=== PATIENT | female | born 1965 | race Caucasian/White ===

== ENCOUNTER → 2017-10-14 13:21 | Outpatient (POV) | payer OTHER, SELFPAY | PROVIDERS: Family Provider Family Medicine; PCP Nurse Practitioner; Visit Provider Nurse Practitioner Acute Care | DX: Z00.00 Encounter for general adult medical examination without abnormal findings (principal) ==

== ENCOUNTER → 2019-02-12 14:15 | Outpatient (CLI) | payer OTHER, SELFPAY ==
[2019-02-12 15:13] LABS: Erythrocyte Sedimentation Rate 13 mm/hr (0-30)
[2019-02-12 15:36] LABS: Alanine Aminotransferase 30 U/L (12-78); Albumin/Globulin Ratio 1.2 (1.1-1.8); Alkaline Phosphatase 91 U/L (46-116); Amylase 70 U/L (25-115); Aspartate Amino Transferase 17 U/L (15-37); Bilirubin,Total 1.1 mg/dL (0.2-1.0); Blood Urea Nitrogen 10 mg/dL (7-18); Calcium 9.4 mg/dL (8.5-10.1); Carbon Dioxide 27 mmol/L (21.0-32.0); Chloride 103 mmol/L (98-107); Creatinine,Serum 0.67 mg/dL (0.55-1.02); Estimated Glomerular Filt Rate 91 ml/min (>60); GFR (African American) 110 ML/MIN (>60); Globulin 3.4 gm/dl (1.3-3.2); Glucose 107 mg/dL (74-106); Lipase 78 u/L (73-393); Sodium 141 mmol/L (136-145); Total Protein,Serum 7.4 gm/dL (6.4-8.2)
== END ==
PROVIDERS: Visit Provider Nurse Practitioner Family
DX: R10.84 Generalized abdominal pain (principal); R11.2 Nausea with vomiting, unspecified
CPT/HCPCS: 36415; 80053; 82150; 83690; 85651

== ENCOUNTER → 2019-08-07 10:33 | Outpatient (CLI) | payer OTHER, SELFPAY ==
--- NOTE | 2019-08-07 10:46 | XR_ITS ---
PROCEDURE: XR LUMBAR SPINE MIN 4V CLINICAL INDICATION: CHRONIC LUMBAGO WITH SCIATICA COMPARISON: LS5 LUMBAR SPINE 5 VIEWS from 05/11/2015 FINDINGS: Mild lumbar scoliosis convex left. There is degenerative disc disease from L2-S1. This has progressed compared to the previous study. No acute fracture or dislocation. No lytic or blastic change. There are facet arthritic changes at L4-5 and L5-S1 IMPRESSION: Progression of degenerative disc disease and facet arthritic change Dictated by: Estuardo Andrade MD 08/07/2019 18:09 Electronically signed by Estuardo Andrade MD in [place] 08/07/2019 18:09
== END ==
PROVIDERS: PCP Nurse Practitioner Family; Visit Provider Nurse Practitioner Family
DX: M54.41 Lumbago with sciatica, right side (principal); G89.29 Other chronic pain
CPT/HCPCS: 72110

== ENCOUNTER → 2020-06-06 10:07 | Outpatient (CLI) | payer OTHER, SELFPAY ==
[2020-06-06 10:41] LABS: Adenovirus,PCR Not Detected (NotDetected); Bordetella Pertussis Not Detected (NotDetected); Chlamydophila Pneumoniae, PCR Not Detected (NotDetected); Coronavirus 19, PCR Not Detected (NotDetected); Coronavirus 229E Not Detected (NotDetected); Coronavirus NL63 Not Detected (NotDetected); Coronavirus OC43 Not Detected (NotDetected); Coronovirus HKU1,PCR Not Detected (NotDetected); Human Metapneumovirus Not Detected (NotDetected); Influenza A, PCR Not Detected (NotDetected); Influenza AH1, 2009 Not Detected (NotDetected); Influenza AH1, PCR Not Detected (NotDetected); Influenza AH3,PCR Not Detected (NotDetected); Influenza B, PCR Not Detected (NotDetected); Mycoplasma Pneumoniae, PCR Not Detected (NotDetected); Parainfluenza 1, PCR Not Detected (NotDetected); Parainfluenza 2, PCR Not Detected (NotDetected); Parainfluenza 3, PCR Not Detected (NotDetected); Parainfluenza 4, PCR Not Detected (NotDetected); Respiratory Syncytial Virus Not Detected (NotDetected); Rhinovirus/Enterovirus Not Detected (NotDetected)
== END ==
PROVIDERS: PCP Family Medicine; Visit Provider Family Medicine
DX: Z03.818 Encounter for observation for suspected exposure to other biological agents ruled out (principal)
CPT/HCPCS: 87581; 87633; 87798; U0003

== ENCOUNTER → 2020-08-22 15:09 | Outpatient (CLI) | payer OTHER, SELFPAY | PROVIDERS: PCP Family Medicine; Visit Provider Nurse Practitioner | DX: Z11.52 Encounter for screening for COVID-19 (principal) | CPT/HCPCS: U0003 ==

== ENCOUNTER 2021-08-10 09:42 | Outpatient (CLI) | payer OTHER, SELFPAY ==
[2021-08-10] VITALS (7 sets, daily range): BP systolic 115–130; BP diastolic 65–73; PULSE 54–60; RESP 16–18; TEMP 36.6–36.7; O2SAT 98–100
== END 2021-08-10 12:36 | disposition home or self-care (01) ==
PROVIDERS: PCP Family Medicine; Visit Provider Family Medicine
DX: U07.1 COVID-19 (principal); Z23 Encounter for immunization
CPT/HCPCS: 96365

== ENCOUNTER 2025-03-17 12:12 | Outpatient (CLI) | payer BC, SELFPAY ==
--- OUTSIDE RECORDS SUMMARY | 2025-03-17 12:16 | XMS_ITS | Encounter Summary ---
Author Organization [facility] Address [address] [place] [address] Care Team Providers Care Winding Machine Operator Name Role Phone Rudy Tena MD Primary Care Provider [phone] Reason for Visit * Reason Onset Date Comments Appointment 08/23/2022 Encounter Details Date Type Department Care Team (Late st Contact Info) Description 08/23/[address] [facility] [address] [phone] Julieth Amato MD [address] [place] [address] Appointment Social History Tobacco Use Types Packs/Day Years Used Date Smoking Tobacco: Never Smokeless Tobacco: Never Alcohol Use Standard Drinks/Week Comments Yes 0 (1 standard drink = 0.6 oz pur e alcohol) socially PHQ-2 Answer Date Recorded Retired Total Score 0 01/25/2021 Comments No Sex and Gender Information Value Date Recorded Sex Assigned at Not on file Legal Sex Female 10:36 AM EDT Gender Identity Not on file Sexual Orientation Not on file documented as of this encounter Miscellaneous Notes * Telephone Encounter - Jazzy Sanches - 08/23/2022 2:38 PM EST Spoke with patient and she is scheduled for 09/06/[address] Amato at 1:00pm. * Telephone Encounter - America Dodd RegSched Rep - 08/23/2022 1:04 PM EST Caller: Joce Hawa Kasperu Relationship: Self Best call back number: [phone] Requested Prescriptions: Requested Prescriptions Pending Prescriptions Disp Refills ??? tamoxifen (NOLVADEX) 20 MG chemo tablet 30 tablet 1 Sig: Take 1 tablet by mouth Daily. PATIENT MUST CALL [phone] TO SCHEDULE A FOLLOW UP APPOINTMENT FOR FUTURE REFILLS. Pharmacy where request should be sent: [id number] - [place], [place] - [address] AT [facility] [address] [address] - [phone] - [phone] FX Additional details provided by patient: YOU CAN SEE PATIENT HAS HER MAMMOGRAM IN September & SHE WAS CALLING TO [facility]. FROM LAST YEAR, I WAS GOING TO [facility]. HER BUT I THOUGHT YOU ALL MIGHT WANTTO [facility]. HER FOR AFTER HER MAMMOGRAM BUT I CANNOT MAKE THAT DECISION SO TOLD PATIENT I WOULD CHECKWITH YOU ALL. HER BIGGEST FEAR IS THAT DR. AMATO WILL NOT REFILL HER TAMOXIFEN. Does the patient have less than a 3 day supply: [x] Yes [] No Would you like a call back once the refill request has been completed: [x] Yes [] No If the office needs to give you a call back, can they leave a voicemail: [x] Yes [] No Regi Ramirez Rep 08/23/22 13:04 EST documented in this encounter Plan of Treatment Not on file documented as of this encounter Visit Diagnoses Diagnosis Malignant neoplasm of right breast in female, estrogen receptor positive, unspecified site of breast documented in this encounter Care Teams Winding Machine Operator Relationship Specialty Start Date End Date Rudy Tena MD [address] [place] [id number] PCP - General Family Medicine 11/10/18 documented as of this encounter
--- OUTSIDE RECORDS SUMMARY | 2025-03-17 12:16 | XMS_ITS ---
Author Organization [facility] Address [address] [place] [address] Care Team Providers Care F[employer] And Wellness Instructor Name Role Phone Rudy Tena MD Primary Care Provider [phone] Active Problems Problem Noted Date Diagnosed Date Changes in vision 12/04/2023 Breast cancer, right 04/08/2019 Cancer Staging:Pathologic:Stage IA(pT1a, pN0, cM0, G2, ER: Positive, RI: Positive, HER2: Positive) - Signed by Julieth Amato MD on 04/08/2019 Current Treatment and Therapy Plans No current plan information found. Past Treatment and Therapy Plans No past plan information found. Treatment Summaries Breast cancer, right* Breast Cancer Survivorship Plan General Information Patient name Hawa Hobson Date of 1965 Phone Email No e-mail address on record Cancer Treatment Team Patient Care Team: Krystal Paulino MD as Referring Physician (General Surgery) Hanh Eduardo MD as Consulting Physician (Radiation Oncology) Julieth Amato MD as Consulting Physician (Hematology and Oncology) Provider Phone numbers Care Team Provider: Krystal Paulino MD, ([phone]) Care Team Provider: Hanh Eduardo MD, ([phone]) Care Team Provider: Julieth Amato MD, ([phone]) Post Treatment Care Team Primary Care Physician Rudy Tena MD [address] [place] [address] Background Information Medical history Past Medical History: Breast cancer, right (CMS/HCC) Surgical history No past surgical history on file. Tobacco use Social History Tobacco Use Smoking Status Never Smoker Smokeless Tobacco Never Used Family oncology history Cancer-related family history includes Breast cancer in her mother. There is no history of Ovarian cancer. Oncology Information Breast cancer, right (CMS/HCC) 01/22/2019 Biopsy Right breast 04/03/2019 Surgery Surgery Procedure: Lumpectomy Location: Right breast Completeness of resection: No evidence of residual tumor 04/08/2019 Initial Diagnosis Breast cancer, right (CMS/HCC) 05/06/2019 - 06/01/2019 Radiation Radiation OncologyTreatment Course: Hawa Hobson received 4005 cGy in 15 fractions to right breast via External Beam Radiation - EBRT. 06/03/2019 - Hormonal Therapy Hormonal medication: tamoxifen Complications during Therapy: No concerns stated Modification to Treatment Plan: No Modifications Lifetime Dose Tracking: No doses have been documented on this patient for the following tracked chemicals: Doxorubicin, Epirubicin, Idarubicin, Daunorubicin, Mitoxantrone, Bleomycin, Mitomycin, Doxorubicin Liposomal [No treatment plan] Persistent Treatment-Associated Adverse Effects at Completion of Therapy It is important to recognize that not every person experiences the following adverse events after treatment. You may not have any of these issues, a few or many adverse effects. Experiences are highly variable. Please discuss any adverse effects of cancer treatment with your cancer care team. After Surgical Therapy Breast Conserving Surgery (Lumpectomy) Breast conserving surgery (lumpectomy) involves the removal of the breast mass (cancer lump) and a surrounding area of normal tissue. After surgery, there may be pain and soreness in the chest, underarm or shoulder which should get better over time. Nerves may be damaged in the breast and areas of lymph node removal which may result in numbness and other changes in sensation. Ask your doctor or nurse if you have issues with pain, numbness or tingling, or any changes in function or mobility. Breast conserving surgery allows women to keep their breast but the breast may look different than it did before surgery. The breast may be smaller and may be different in size and shape. There will be a scar from the surgery and scar tissue may feel different. Radiation therapy can also affect theway the breast looks and feels. How you think and feel about your body is important and coping withchanges after breast surgery takes time. It's important to look at your scar, which should become less red and swollen over time. It's important to touch your scar, too. Your physician may give you instructions about massaging the scar to help with healing and to soften scar tissue. If you have a partner, let your partner look at and feel the scar when you're ready. Working through feelings aboutthe cancer and changes as a result of surgery may take time and support. Talk with your doctor or nurse about any issues with body image and coping. Survivors of breast cancer should speak with their health care provider regarding the possibility of a genetic or family syndrome. If there does appear to be a family history or possible genetic syndrome, genetic counseling and testing may be recommended. Mentcle Node Biopsy Removal of the sentinel lymph node is the removal of the first lymph node to which cancer cells aremost likely to spread. After surgery, there may be pain and soreness in the area where the node wasremoved. Nerves may be damaged which may result in numbness or other changes in sensation. While sentinel node biopsy (as opposed to a lymph node dissection where more lymph nodes are removed) decreases the risk of developing lymphedema, the risk is not completely gone. Lymphedema Removal of lymph nodes can slow the normal flow of lymph in the area which can lead to swelling in that limb, also called lymphedema. Survivors who also received radiation therapy to the area where alymph node was removed may be at increased risk of developing lymphedema. In some cases, the lymphedema can occur years after cancer therapy was completed. Lymphedema can cause pain or discomfort, disfigurement, change in function, and increased risk of infection in the affected area and closest limb. Signs of lymphedema can include a feeling of fullness or heaviness, changes in the skin (red, thick, stiff), aching, tightness, and difficulty moving or flexing nearby joints. Other signs could be that your jewelry or clothes, like socks, pants or sleeves, may begin to feel tight on the affectedlimb. As signs of lymphedema could develop months or years after treatment, continue to monitor forsigns and notify your doctor. Several steps can be taken to help prevent and control lymphedema. Survivors should protect the potentially affected limb by avoiding cuts, scrapes, carver, insect bites, shots/vaccines, blood draws, and IV sticks in order to decrease the risk of developing an infection in the limb. In addition, thesurvivor should protect the limb from the sun to avoid sunburn. Lastly, survivors should avoid tight clothing and jewelry, and blood pressures in the affected limb that might further slow the normal flow of lymph. Survivors of cancer, including those at risk for lymphedema, can and should exercise. Survivors should start slow and gradually increase intensity while monitoring your limb for changes in swelling or redness. If either occurs, stop exercising and notify your doctor for further direction. After Chemotherapy No chemotherapy received. After Radiation Therapy Radiation therapy can cause early and late side effects. Early side effects are those that happen during or shortly after treatment and are usually gone within a few weeks after treatment ends. Late side effects may take months or years to develop and vary depending on the areas of the body included in the field of radiation and the radiation techniques that were used. The most common early side effects are fatigue (feeling tired) and skin changes. Other early side effects are usually related to the area being treated. If you continue to have some skin problems after treatment ends, be gentle with the skin in the treatment area until all signs of irritation are gone and continue to care for your skin as your doctors and nurses have advised. If you continue to have fatigue, you may need to plan your activities to maximize energy, get extra rest while your bodyis still recovering and follow other instructions from your doctors and nurses such as exercise andactivity. retirement effects of radiation therapy vary greatly depending on the areas included in the field ofradiation and the radiation techniques that were used. Breast tissue exposed to radiation may become more firm over time and you may notice changes in the size and shape of the breast. The skin wherethe breast was treated may have a different coloration, be more red or appear tanned. If the lymph nodes under the arm (axillary nodes) were in the radiation field, there may be an increased risk of developing lymphedema. Lymphedema is a condition in which fluid collects in the arm or other areas such as the hand, fingers, chest or back and cause swelling. In rare cases, radiation therapy can increase the risk of a second cancer. Ask your doctors and nurses about the risk of rodent exterminator effects. Keep your follow up appointments and keep up with recommended health screenings Hormone Therapy Hormones, like estrogen and progesterone, are naturally produced in the body. Typically these hormones help our body function in various ways, however, in some cases these hormones can also cause cancer to grow. When your cancer is positive for hormone receptors, your doctor may recommend hormone therapy. Hormone therapy works by either blocking the effects of the hormone on the cancer cell, or by reducing the amount of hormone produced by the body. In doing so, the cancer cells no longer receive or use the hormone to grow. It is very important for you to take the medicine as prescribed by your doctor and keep your regular follow-up appointments. Some medications interfere with hormone therapy medications, so be sure and discuss all medications that you take with your doctor. Common side effects women experience from hormone therapy includes hot flashes, vaginal dryness, and lack of a period in women who have not yet reached menopause. Some less common but serious side effects of hormone therapy may include increased risk for blood clots, joint pain, bone loss, weakness, mood changes, nausea, fatigue, and loss of interest in sexual activity, endometrial and uterine cancers, risk for stroke, heart attack, angina , and heart failure. Share with your doctor the side effects you experience so a plan can be made to minimize the effects. In addition, these medications will be taken long-term, in some cases 5-10 years. When taking oral hormone therapy, it may be helpful to create a calendar, use a pillbox, or set an alarm on your watch or phone to remind you daily to take the medication. Care of your Venous Access Device No Venous Access Device currently in place General After Cancer Treatment It is not uncommon for cancer to impact other areas of your life such as relationships, work and mental health. If you develop financial concerns, resources are sometimes available to assist in theseareas. Depression and anxiety can present either during or after cancer diagnosis and treatment. Itis important to discuss with your physician any of these concerns so these resources can be made available to you. General Cancer Support & Resources [facility] [address], [address] [place] [address] Med Onc: Teaching Music Lessons Onc: Manager Of Digital: Kelle Khan - Psychiatric Nurse Practitioner: Celine Pike APRN - [phone] Kick It! (A free smoking cessation program) Financial Counselor and Contact Information: [facility] Financial Counseling - Test Manager Contact Information: Maura Tirado - [phone] Wound Ostomy & Continence Nurse: Local Cancer Support Group and Contact Information: Look Good Feel Better: A non-medical, brand-neutral public service program that teaches beauty techniques to people with cancer to help them manage the appearance-related side effects of cancer treatment. The program includes lessons on skin and nail care, cosmetics, wigs and turbans, accessories and styling, helping people with cancer to find some normalcy in a life. - See more at: http://lookgoodfeelbetter.org Journey Toward Empowerment - for Women with Cancer: ([facility]) The Tools and encouragement you need to live your life to the fullest. Free Dinner served @ 6:00pm followed by speaker from 6:30 - 7:30pm. The series runs from May, and meets monthly. Call Steffanie Chris RN, OCN @ to receive information and upcoming schedule. [facility] Cancer Buddies: This support group is open to anyone that has been diagnosed with cancer of any type. Meets at 6:30pm on the last Saturday of each month. Location: [facility]; [address] [place] [address]. For more information call Tatiana Desir @ . Breast Cancer Support & Resources Local Cancer Support Groups and Contact Information: [place] ([place]): Breast Cancer Support group. Meets the Saturday of each month at various locations. Please Call Dominic Guerrero for meeting information @ [phone] or Gabriella Ye @ [phone]. The Journey: Breast Cancer Support Ministry: Meets the Saturday of each month, 5:00PM @ O?[place], [place]. Please call Halley Polanco at [phone] for additional information. Reach To Recovery: An [employer] peer support group for women with a concern about breast cancer. Patentscan talk with volunteer breast cancer survivors, in person or over the phone, for support & encouragement. Also, after you have completed your journey and would like to give back, you can call the 8-112 number to volunteer as a survivor and support to others. For additional information, please call [phone] or go to sss.cancer.org. Surveillance How Frequent? Medical Oncology visits 1 - 4 times per year as clinically appropriate for 5 years, then annually Lab tests Imaging exams Mammography Every 12 months Lymphedema Monitor for lymphedema Genetic Counseling Periodic screening for changes in family history and referral to genetic counseling as indicated Gynecologic assessment For women on tamoxifen, gynecologic assessment every 12 months if uterus is present. Bone Density study For women on aromatase inhibitor or who experience ovarian failure secondary to treatment should have monitoring of bone health and bone mineral density determination at baseline and periodically thereafter Immunizations Influenza Herpes Zoster Pneumococcal Yearly Once As appropriate Tobacco Cessation The patient is not currently a tobacco user. Counseling given: Not Answered Monitor for ongoing toxicities: None Specified Call your doctor if you have any of these signs or symptoms New or worsening symptoms. Pain that is new, unrelieved or bothersome. Difficulty with your emotions, anxiety, and/or depression. Physical problems that affect your abilities in your daily life or those that are bothersome (for example, continued fatigue, trouble sleeping, sexual problems, or edema). Referrals provided There are no referral needs at this time. Self Care Plan Self Care Plan: What You Can Do to Stay Healthy after Treatment for Cancer Cancer treatments may increase your chance of developing other health problems years after you havecompleted treatment. The purpose of this self care plan is to inform you about what steps you can take to maintain good health after cancer treatment. Keep in mind that every person treated for cancer is different and that these recommendations are not intended to be a substitute for the advice of a doctor or other health day care provider. Please use these recommendations to talk with your health care provider about an appropriate follow up care plan for you. Surveillance for Your Cancer Recommendation Frequency Comments Cancer surveillance visit with medical provider that is focused on detecting signs of recurrence ofyour cancer. For additional information, visit www.livestrong.org or www.cancer.net/patient/Survivorship Frequency depends on type and stage of cancer you had. (If you had a higher risk cancer, you may be seen more often). Your doctor has provided you with a personalized cancer treatment summary and survivorship care plan. If you need another copy, ask your doctor. General Cancer Screening for Women Cancer screening tests are designed to find cancer or pre-cancerous areas before there are any symptoms and, generally, when treatments are most successful. Various organizations have developed guidelines for cancer screening for women. While these guidelines vary slightly between different organizations, they cover the same basic screening tests for breast, cervical and colorectal cancers. In addition, during routine health examinations (at any age) your health care provider may also evaluate for cancers of the skin, mouth and thyroid. Not all screening tests are right for everyone. Your personal and family cancer history, and/or the presence of a known genetic predisposition, can affect which tests are right for you, and at what age you begin them. Therefore, you should discuss these with your health care provider. Your care plan will also include a section on follow up care foryour type of cancer, and these recommendations override the general screening recommendations for that particular type of cancer in the general population. The [employer] Cancer Society (ACS) recommends these screening guidelines for women: Recommendation Frequency Comments Breast Cancer Screening For more information, see the ACS document Breast Cancer: Early Detection. www.cancer.org/ssLINK/hpismv-vnvuyd-evvnk-detection-alicia Yearly mammograms starting at age 40, and continuing for as long as a woman is in good health. Clinical breast exam (CBE), performed by a health day care provider, every three years for women intheir 20s and 30s, and every year for women 40 and over. A monthly breast self-exam (BSE) is a good way to monitor breast health. Women should know how their breasts normally look and feel, and report any change promptly to their health care provider. The ACS recommends that some women - because of their family history, a genetic tendency, or certain other factors - be screened with Magnetic Resonance Imaging (MRI) in addition to mammograms. The numberof women who fall into this category is small (less than 2 percent of all [place] women). Talk with your doctor about your personal history and whether you should have additional tests at an earlier age. Colon and Rectal Cancer Screening For more information see the ACS document Colorectal Cancer: Early Detection. www.cancer.org/ssLINK/mjkhjyiqvt-ghpyew-lfvjo-detection-alicia Options for colon cancer screening can be divided into those that screen for both cancer and polyps, and those that just screen for cancer.Screening should begin at age 45 (unless you are considered high risk (see comments), using one of the following testing schedules: Tests that find polyps and cancer (Preferred over those that find cancer alone. If any of these tests are positive, a colonoscopy should be done.) Flexible sigmoidoscopy every five years, or Colonoscopy every 10 years, or Double-contrast barium enema every five years, or CT colonography (virtual colonoscopy) every five years Tests that primarily test for cancer Yearly fecal occult blood test (FOBT)*, or Yearly fecal immunochemical test (FIT) *, or Stool DNA test (sDNA), interval uncertain* * The multiple stool take-home test should be used. One test done by the doctor in the office is not adequate. A colonoscopy should be done if the test is positive. Talk with your doctor about your medical history, and what colorectal cancer screening test and schedule is best for you. Individuals at higher risk of colon cancer should have screening earlier and potentially more frequently. Those at higher risk of colon and rectal cancer: Individuals with a family history of colon or rectal cancer in a relative who was diagnosed before the age of 60 Individuals with a history of polyps Individuals with inflammatory bowel disease (Crohn's disease or ulcerative colitis) Individuals with a genetic predisposition to colon or rectal cancer, such as hereditary non-polyposis colon cancer (HNPCC) syndrome or familial adenomatous polyposis (FAP) syndrome Cervical Cancer Screening For more information see the ACS document Cervical Cancer: Early Detection. www.cancer.org/.../ojcbifzp-rjuldu-lhsqnmnjma-waq-guzul-xvhtytewr-alicia Cervical cancer screening should not begin before age 21. Screening Pap tests should be performed every three years between age 21 and 29 Women age 30 or older should be screened every 3 years with a Pap test or every five years with a combined Pap/Human Papillomavirus (HPV) test. Women 65 years of age or older who have had negative consecutive screening in the preceding 10 years should discontinue screening. Women who have had a total hysterectomy (removal of the uterus and cervix) should also stop having Pap tests, unless the surgery was done as a treatment for cervical cancer or pre-cancer. Women who have had a hysterectomy without removal of the cervix should continue to have Pap tests. Women who have had a history of a serious cervical precancer should continue screening for at least20 years, even if that extends screening past age 65. Women who have been vaccinated against HPV should still follow these screening guidelines. Treatment for most gynecological cancers involves hysterectomy and alters recommendations for Pap tests. Refer to your personalized cancer treatment summary and survivorship care plan to see what the Pap test recommendations are for you. If you need another copy of your care plan, please ask your doctor. Sun Exposure and Skin Cancer Risk Skin cancer is the most commonly diagnosed type of cancer, and rates are on the rise. However, thisis one cancer that in most cases can be prevented or detected early. While you may hear that you need the sun to make vitamin D, in reality you only need a few minutes a day to do this. Exposure to ultraviolet (UV) rays, either by natural sunlight or tanning beds, can lead to skin cancer. In additio n, UV rays lead to other forms of skin damage, including wrinkles, loss of skin elasticity, dark patches (sometimes called age spots or liver spots), and pre- cancerous skin changes (such as dry, scaly, rough patches). Although dark- skinned people are less likely to develop skin cancer, they can anddo develop skin cancers, most often in areas that are not exposed to sun (on the soles of the feet,under nails, and genitals). You can do a lot to protect yourself from damaging UV rays and to detect skin cancer early. Start by practicing sun safety, including using a broad spectrum sunscreen (which protects against UVA and UVB rays) with an SPF of at least 30 every day, avoiding peak sun times (10 a.m. to 4 p.m., when therays are strongest) and wearing protective clothing such as hats, sunglasses and long- sleeved shirts. Examine your skin regularly so you become familiar with any moles or birthmarks. If a mole has changed in any way, you should have a health care provider examine the area. This includes a change in size, shape or color; the development of scaliness, bleeding, oozing, itchiness or pain; or the development of a sore that will not heal. If you have a lot of moles, it may be helpful to make note of moles using photographs or a mole map . For a guide to performing a skin exam, visit www.skincarephysicians.com/skincancernet/skin_examinations.html. Healthy Lifestyle For some cancer survivors, the experience is the motivation to making healthy lifestyle changes. Itmay seem insignificant, but these changes have been shown to reduce the risk of the cancer coming back or a new cancer developing. Below are some tips on adopting a healthier lifestyle. Maintaining ahealthy weight is important in cancer prevention, as is physical activity and eating a healthy diet. Strive to incorporate all three pieces of the puzzle: healthy weight, balanced diet and regular exercise. Recommendation Goal Comments Maintain a healthy weight. For more information, visit http://www.nhlbi.nih.gov/health/public/heart/obesity/lose_wt/index.htm www.win.niddk.nih.gov Call the [employer] Association Talk to your health care team about what a healthy weight is for you, and take stepsto reach and maintain that weight. For many people reaching their ideal weight can be a challenge; however, losing even 5 to 10 poundscan lower blood pressure, blood sugar and cholesterol levels. Weigh yourself weekly to monitor for weight gain/loss Being overweight can increase your chance of your cancer coming back. Maintaining a healthy weight, physical activity and eating a healthy diet are all important in cancer prevention. Being overweight can increase your chance of having high blood pressure, high blood sugar and/or high cholesterol, which can lead to heart disease, diabetes and stroke. If you would like more information about your blood sugar, cholesterol or blood pressure, talk with your primary care provider. Eat a healthy diet, mostly from plant sources. For more information, visit http://www.choosemyplate.gov/food-groups/ Eat healthy, including plenty of fruits and vegetables daily. Drink more water, less soda and juice. Limit how much alcohol you drink (if you drink at all). Strive to have two- thirds of your plate be vegetables, fruits, whole grains and beans, while one- third or less should be an animal product. Choose fish and chicken and limit red meat and processed meats. Limit intake of alcohol to two drinks per day. Exercise. To learn more about recommendations for diet, activity and weight, visit AICR?s Guidelines for Survivors http://preventcancer.aicr.org/site/PageServer?pagename=patients_survivors_guidel chely ACS Eat Healthy and Get Active www.cancer.org/Healthy/EatHealthyGetActive/index Experts recommend at least 30 minutes of pzktdazo-uh-pnciffog activity per day, five days a week. Research shows that exercise can help you control your weight, improve your energy level, and help you sleep at night. The meehan is to find a physical activity you enjoy such as walking, dancing or gardening and do it regularly. If you have been inactivefor a while, start out slowly. You can start out by exercising 10 minutes a day several days a week. If you feel dizzy, short of breath, or have chest pain during exercise, stop exercising and talk with your primary care doctor. Do not use tobacco in any form. For more information, visit http://www.cdc.gov/tobacco/campaign/tips/ If you use tobacco, quit as soon as possible. Smoking is the most preventable cause of in the [place] If you would like more information, ask your doctor or you can call a national hotline at 8(322)-QUIT-NOW. Keep your bones healthy. For more information, visit www.niams.nih.gov/Health.../Bone/Bone_Health/bone_health_for_life For the FRAX (Fracture Risk Assessment) tool, visit: www.shef.ac.uk/FRAX/ , to estimate 10-year risks for fractures Ask your primary care provider aboutscreening for osteoporosis beginning at age 65 or at a younger age if your bone fracture risk is increased. The 10-year risk for osteoporotic fractures can be calculated for individuals by using the FRAX tool and could help to guide screening decisions for women younger than 65 years. Maximize your bone health by eating healthy, getting enough calcium and vitamin D, and exercising regularly. Certain cancer treatments, such as chemotherapy or hormonal therapy, can cause bone loss. In addition, after menopause, women can lose up to 20 percent of their bone density. The good news is that women can maximize their bone density by eating healthy, getting enough calcium and vitamin D, and exercising regularly. Age (years) Calcium per day Vitamin D per day 19 to 49 1000 milligrams 600 units 50 or over 1200 milligrams 800 units Have regular check-ups by a healthcare professional. For more information about healthy screening tests for men visit the U.S. Department of Health and Human Services. http://www.womenshealth.gov/txxgiuygw-fdyga-vai-vaccines/scqujhuxd-emnag-ygn-men / For more information about adult vaccinations visit the CDC: http://www.cdc.gov/vaccines/recs/schedules/adult-schedule.htm Keep up-to-date on general health screening tests, including cholesterol, blood pressure and glucose (blood sugar) levels. Get an annual influenza vaccine (flu shot). Get vaccinated with the pneumococcal vaccine, which prevents a type of pneumonia, and re-vaccinatedas determined by your health care team. Don?t forget dental and eye health! The [employer] recommends adults have their eyes examined every two years until age 60, then annually. People who wear glasses or corrective lenses or are at high risk for eye problems (i.e., diabetics, family history of eye disease) should be seen more frequently. The [employer] recommends adults see their dentist at least once a year. 3 No information on file. No information on file.
--- OUTSIDE RECORDS SUMMARY | 2025-03-17 12:16 | XMS_ITS | Clinical Summary ---
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 Active cyclobenzaprine (FLEXERIL) 10 MG tablet Take 1 tablet by mouth every night at bedtime. 05/06/2020 Active venlafaxine XR (Effexor XR) 150 MG 24 hr capsuleIndicatio ns:Malignant neoplasm of right breast in female, estrogen receptor positive, unspecified site of breast Take 1 capsule by mouth Daily. 30 capsule 11 01/10/2021 Active escitalopram (LEXAPRO) 5 MG tablet Take 1 tablet by mouth every night at bedtime. 07/04/2021 Active meclizine (ANTIVERT) 25 MG tablet Take 1 tablet by mouth 3 (Three) Times a Day As Needed for Dizziness. 15 tablet 12/06/2023 Active atorvastatin (LIPITOR) 80 MG tablet Take 1 tablet by mouth Every Night. 90 tablet 12/06/2023 Active aspirin 81 MG chewable tablet Chew 1 tablet Daily. 12/07/2023 Active Active Problems Problem Noted Date Diagnosed Date Changes in vision 12/04/2023 Breast cancer, right 04/08/2019 Cancer Staging:Pathologic:Stage IA(pT1a, pN0, cM0, G2, ER: Positive, NV: Positive, HER2: Positive) - Signed by Julieth Amato MD on 04/08/2019 Family History Medical History Relation Name Comments Breast cancer Maternal Aunt 1 60ish Breast cancer Maternal Aunt 2 60ish Breast cancer Maternal Aunt 3 60ish Breast cancer Maternal Aunt 4 60ish Breast cancer Mother late 60's Ovarian cancer Neg Hx Relation Name Status Comments Maternal Aunt 1 Maternal Aunt 2 Maternal Aunt 3 Maternal Aunt 4 Mother Social History Tobacco Use Types Packs/Day Years Used Date Smoking Tobacco: Never Smokeless Tobacco: Never Tobacco Cessation:Counseling Given: Not Answered Alcohol Use Standard Drinks/Week Comments Yes 0 (1 standard drink = 0.6 oz pur e alcohol) socially PHQ-2 Answer Date Recorded Retired PHQ-9: Brief Depression Severity Measure Score 0 09/06/2022 Abuse Screen Answer Date Recorded Feels Unsafe at Home or Work/School no 12/04/2023 Feels Threatened by Someone no 11/17 Does Anyone Try to Keep You From Having Contact with Others or Doing Things Outside Your Home? no 12/04/2023 Physical Signs of Abuse Present no 12/04/2023 Housing Stability Answer Date Recorded Current Living Arrangements Not on file 04/2023 Potentially Unsafe Housing Conditions Not on dejon e 05/27/2023 Disabilities Answer Date Recorded Concentrating, Remembering, or Making Decisions Difficulty Not on file 05/27/2023 Doing Errands Independently Difficulty Not on fi le 05/27/2023 Education Answer Date Recorded Help with school or training? Not on file Preferred Language Not on file 05/27/2023 PHQ-2 Answer Date Recorded Retired PHQ-9: Brief Depression Severity Measure Score 0 09/06/2022 Comments No Sex and Gender Information Value Date Recorded Sex Assigned at Not on file Legal Sex Female 10:36 AM EDT Gender Identity Not on file Sexual Orientation Not on file Last Filed Vital Signs Vital Sign Reading Time Taken Comments Blood Pressure 142/95 12/06/2023 7:40 AM EDT Pulse 69 12/06/2023 10:00 AM EDT Temperature 36.8 C (98.3 F) 12/06/2023 7:40 AM EDT Respiratory Rate 16 12/06/2023 7:40 AM EDT Oxygen Saturation 92% 12/06/2023 10:00 AM EDT Inhaled Oxygen Concentration - - Weight 91.6 kg (202 lb) 12/05/2023 4:50 PM EDT Height 162.6 cm (5' 4 ) 12/05/2023 4:50 PM EDT Body Mass Index 34.67 12/05/2023 4:50 PM EDT Plan of Treatment Health Maintenance Due Date Last Done Comments Annual Gynecologic Pelvic an d Breast Exam 1965 COLOGUARD 02/09/2008 COLON CANCER SCREENING 5 YEA R SIGMOIDOSCOPY 02/09/2008 COLONOSCOPY 02/09/2008 COLORECTAL CANCER SCREENING 02/09/2008 CT COLONOGRAPHY 02/09/2008 FECAL OCCULT BLOOD TEST 02/09/2008 FIT Testing (1 year) 02/09/2008 Pneumococcal Vaccine 50+ (1 of 1 - PCV) 2013 ZOSTER VACCINE (1 of 2) 2013 ANNUAL PHYSICAL 02/12/2019 HEPATITIS C SCREENING 02/12/2019 COVID-19 Vaccine (3 - 2023-2 5 season) 2024 08/02/2021, 01/20/2021 INFLUENZA VACCINE 05/19/2025 06/01/2024, , 05/22/2016 MAMMOGRAM 12/09/2026 12/09/2024, 11/17, 10/01/2022, Additional history exists TDAP/TD VACCINES (3 - Td or Tdap) 02/01/2030 020, 10/21/1996 Procedures Procedure Name Priority Date/Time Associated Diagnosis Comments MAMMO SCREENING DIGITAL TOMOSYNTHESIS BILATERAL W CAD Routine 12/09/2024 9:39 AM EDT Visit for screening mammogram from Last 3 Months or Most Recently Relevant to Health Maintenance Results * Mammo Screening Digital Tomosynthesis Bilateral With CAD (12/09/2024 9:39 AM EDT) Anatomical Region Laterality Modality Breast N/A Mammography 12/14/2024 8:22 AM EDT Impressions 12/14/2024 8:25 AM EDT Benign screening mammogram. RECOMMENDATION: Continue annual screening mammography. BI-RADS CATEGORY 2, BENIGN. CAD was utilized. The standard false-negative rate of mammography is between 10% and 25%. Complex patterns or increased breast density will markedly elevate the false-negative rate of mammography. A letter, in lay terminology, with the results of this exam will be mailed to the patient. 12/14/2024 8:[address] Joaquin Teresa MD on Workstation: VINCE Sandhu 12/14/2024 8:25 AM EDT DIGITAL SCREENING MAMMOGRAM WITH TOMOSYNTHESIS HISTORY: Screening Mammography. Low dose full field digital breast tomosynthesis imaging was performed with 2D and 3D acquisitions consisting of bilateral CC and MLO views. Examination is compared to prior examination dating back to 01/22/2019. Examination is read in conjunction with computer aided detection. FINDINGS: The breast tissue is heterogeneously dense, which may obscure small masses. No suspicious masses, microcalcifications or areas of architectural distortion are identified. Right breast postlumpectomy changes are stable. us Rudy Tena MD IMG MAMMOGRAPHY ORDERABLES More[place] l Result from Last 3 Months or Most Recently Relevant to Health Maintenance Insurance PPO Advance Directives * CPR (Attempt to Resuscitate) (Latest Code Status on File) Date Activated Date Inactivated Comments 12/04/2023 11:43 PM 12/06/2023 2:44 PM Question Answer Comments Code Status (Patient has no pulse and is not breathing): CPR (Attempt to Resuscitate) Medical Interventions (Patie nt has pulse or is breathing): Full Support Level Of Support Discussed With: Patient Care Teams Overlock Sleeve Setter Relationship Specialty Start Date End Date Rudy Tena MD [address] [place] [id number] PCP - General Family Medicine 11/10/18
[2025-03-17 12:53] LABS: Creatine Kinase 121 U/L (30-135)
[2025-03-17 13:20] LABS: Troponin I < 0.01 ng/ml (0.00-0.034)
== END 2025-03-17 23:59 | disposition home or self-care (01) ==
LOC: LAB 12:13
PROVIDERS: PCP Family Medicine; Visit Provider Family Medicine
DX: R07.9 Chest pain, unspecified (principal)
CPT/HCPCS: 36415; 82550; 83874; 84484